=== PATIENT | male | born 1985 | race Caucasian/White ===

== ENCOUNTER 2018-03-01 16:30 | Inpatient (IN) | payer OTHER ==
[~2018-03-01] VITALS: Ht 170.2 cm; Wt 73.3 kg
[~2018-03-01 16:30] MED LIST: SEROQUEL50 M1 PO
--- NOTE | 2018-03-01 16:50 | ED PSYCHIATRIC COMPLAINT ---
History of Present Illness General Chief Complaint: Psychiatric Related Complaint Stated Complaint: +SI Source: patient Exam Limitations: no limitations Vital Signs & Intake/Output Vital Signs & Intake/Output Vital Signs Date Time Temp Pulse Resp B/P B/P Pulse O2 O2 Flow FiO2 Mean Ox Delivery Rate 03/02 1122 97.2 68 18 122/73 98 03/02 0837 97.2 85 18 137/94 97 03/02 0617 98.5 54 18 123/85 98 Room Air 03/01 2229 98.4 94 18 114/88 97 Room Air 03/01 2207 Room Air 03/01 2049 98.4 100 20 155/91 99 Room Air 03/01 1652 98 Room Air 03/01 1638 97.6 94 18 128/72 98 Room Air ED Intake and Output 03/02 0000 03/01 1200 Intake Total Output Total Balance Patient 155 lb Weight Allergies Coded Allergies: No Known Allergies (06/15/17) Triage Note: PT STATES THAT HE WAS RELEASED FROM [facility] YESTERDAY AND WAS SENT [facility] ABD THEY WOULD NOT EXCEPT HIM DUE TO HE HAS WARRANTS OUT FOR ARREST. PT STATES THAT HE IS HOMELESS AND HAS BEEN FEELING POSITIVE SI WITH NO PLAN AT THIS TIME. LAST USED Wednesday. DENIES ETOH Triage Nurses Notes Reviewed? yes Onset: Gradual Duration: week(s): Timing: recent history HPI: 32yo male with hx of substance abuse presents to ED for suicidal ideation. Patient states he was released from rehab yesterday and attempted to get into a [facility] house however was denied due to outstanding warrants for his arrest. Patient was in rehabilitation for heroin and crack cocaine use, he last used both on 02/21, one day prior to admission to rehab. Patient also used alcohol last on 02/22. He reports feeling suicidal relating to being homeless and lack of social support. He feels as though he would be "better off ". Patient states that currently he does not have a plan however states that if he were discharged he believes he would do something, he does not feel safe on his own at this time. Patient reports one previous suicide attempt where he was going to hang himself however EMS arrived prior to going through with it. No HI/AH/VH. (Ghislaine WOLF,Nupur Zavala) Reconcile Medications Ibuprofen (Advil) 200 MG CAPSULE 3 CAP PO PRN PAIN/INFLAMMATION (Reported) Methadone HCl 10 MG/ML ORAL.CONC 30 MG PO DAILY MENTAL HEALTH (Reported) Trazodone HCl 50 MG TABLET 1-2 TAB PO QPM PRN SLEEP/MENTAL HEALTH (Reported) (Gilbert SPICER,Alessio Gómez) Past History Travel History Traveled to [place] past 21 day No Medical History Any Pertinent Medical History? see below for history Neurological: NONE EENT: NONE Cardiovascular: NONE Respiratory: NONE Gastrointestinal: NONE Hepatic: NONE Renal: NONE Musculoskeletal: NONE Psychiatric: substance abuse Endocrine: NONE Blood Disorders: NONE Cancer(s): NONE NET FINISHER/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: NONE Surgical History Surgical History: non-contributory Psychosocial History Who do you live with Other (see notes) What is your primary language Vietnamese Tobacco Use: Never used ETOH Use: denies use Illicit Drug Use: denies illicit drug use Family History Hx Contributory? No (Nupur Hernandez) Review of Systems Review of Systems Constitutional: Reports: no symptoms. EENTM: Reports: no symptoms. Respiratory: Reports: no symptoms. Cardiovascular: Reports: no symptoms. GI: Reports: no symptoms. Genitourinary: Reports: no symptoms. Musculoskeletal: Reports: no symptoms. Skin: Reports: no symptoms. Neurological/Psychological: Reports: see HPI. Hematologic/Endocrine: Reports: no symptoms. Immunologic/Allergic: Reports: no symptoms. All Other Systems: Reviewed and Negative (Nupur Hernandez) Physical Exam Physical Exam General Appearance: well developed/nourished, no apparent distress, alert, awake Head: atraumatic, normal appearance Eyes: Bilateral: normal appearance. Ears, Nose, Throat: hearing grossly normal Neck: normal inspection, supple, full range of motion Respiratory: normal breath sounds, no respiratory distress, lungs clear Cardiovascular: regular rate/rhythm Extremities: normal range of motion Neurological/Psychiatric: no motor/sensory deficits, awake, alert, normal mood/ affect, calm Appearance/Memory/Insight: appropriate appearance, appropriate insight Behavoir/Eye Contact/Speech: cooperative, good eye contact Thoughts/Hallucinations: normal thought pattern, no apparent hallucination Skin: intact, normal color, warm/dry SAD PERSONS SAD PERSONS Response Value Male Sex? yes 1 Depression/Hopelessness? yes 2 Previous Attempts/Psych Care yes 1 Excessive Ethanol/Drug Use? yes 1 Single//? yes 1 Social Support? has no support 1 Stated Future Intent? yes 2 Total 9 SAD PERSONS Done? yes (Ghislaine WOLF,Nupur Zavala) Progress Differential Diagnosis: drug intoxication, drug overdose, drug withdrawal, suicidal ideation, depression, homelessness Plan of Care: Orders Procedure Date/time Status Regular Diet 03/02 D Active Regular Diet 03/02 B Complete Admit to inpatient psych 03/02 1335 Active Patient Data - inpatient psych 03/02 1323 Active Admit to inpatient psych 03/02 1323 Active Vital Signs 03/02 UNK Active Nursing Misc 03/02 UNK Active Alternative Nursing Therapy 03/02 UNK Active Activity/Ambulation 03/02 UNK Active Continuous Observation Monitor 03/01 1632 Active URINE DRUG SCREEN FOR ER ONLY 03/01 1632 Complete URINALYSIS 03/01 1632 Complete ETHANOL 03/01 1632 Complete COMPREHENSIVE METABOLIC PANEL 03/01 1632 Complete CBC WITHOUT DIFFERENTIAL 03/01 1632 Complete ED CRISIS PSYCH CONSULT 03/01 1632 Active Current Medications Sig/Wong Start time Last Medication Dose Stop Time Status Admin Trazodone HCl 50 MG QPM 03/02 2100 UNVr (Desyrel) Al Hydroxide/Mg 30 ML Q4-6 PRN PRN 03/02 1330 UNVr Hydroxide (Maalox Plus) Hydroxyzine HCl 50 MG Q6-PRN PRN 03/02 1330 UNVr (Atarax) Ibuprofen 400 MG Q6P PRN 03/02 1330 UNVr (Motrin) Methadone HCl 30 MG DAILY 03/02 0900 UNVr 03/02 (Dolophine) 1042 Trazodone HCl See Dose QPM PRN 03/02 0145 CANr (Desyrel) Insts (1) Dose Instructions: (1)Trazodone HCl (Desyrel): 1-2 TAB Laboratory Tests 03/01/18 1721: Urine Opiates Screen < 100, Methadone Screen 676 H, Barbiturate Screen < 60, Ur Phencyclidine Scrn < 6.00, Amphetamines Screen < 100, U Benzodiazepines Scrn < 85, Urine Cocaine Screen < 50, Urine Cannabis Screen < 5.00, Urine Color YEL, Urine Clarity CLEAR, Urine pH 6.5, Ur Specific [place] 1.025, Urine Protein NEG, Urine Ketones NEG, Urine Nitrite NEG, Urine Bilirubin NEG, Urine Urobilinogen 0.2, Ur Leukocyte Esterase NEG, Ur Microscopic EXAM NOT REQUIRED, Urine Hemoglobin NEG, Urine Glucose NEG 03/01/18 1705: Anion Gap 8, Estimated GFR > 60, BUN/Creatinine Ratio 21.1, Glucose 89, Calcium 9.8, Total Bilirubin 0.3, AST 33, ALT 58, Alkaline Phosphatase 50, Total Protein 7.6, Albumin 4.4, Globulin 3.2, Albumin/Globulin Ratio 1.4, CBC w Diff NO MAN DIFF REQ, RBC 5.45, MCV 84.3, MCH 28.5, MCHC 33.7, RDW 14.1, MPV 6.6 L, Gran % 64.4, Lymphocytes % 24.9, Monocytes % 7.3, Eosinophils % 2.0, Basophils % 1.4, Absolute Granulocytes 5.1, Absolute Lymphocytes 2.0, Absolute Monocytes 0.6, Absolute Eosinophils 0.2, Absolute Basophils 0.1, Serum Alcohol < 10.0 Patient's labs and urinalysis are stable. Awaiting crisis evaluation and disposition. The patient was signed out to Dr. Coreas pending crisis evaluation and disposition. Hand-Off Endorsed To: Ector Coreas DO Endorsed Time: 1853 Pending: consult (crisis) (Nupur Hernandez) Departure Departure Disposition: STILL A PATIENT Condition: Stable Clinical Impression Primary Impression: Suicidal ideation Referrals: Patient Has No Primary Care Dr (PCP/Family) Departure Forms: Customer Survey General Discharge Information (Nupur Hernandez) Departure Comments 03/01/18 Patient was signed out to me by Teresa WOLF at 7 PM. She is for disposition by crisis in the a.m. She will be signed out to Dr. Hunt at 11 PM (Ector Coreas DO) Departure Comments pt to be signed out to dr. garrett, 03/02/18, 7am, pending crises evaluation (Gilbert SPICER,Alessio Gómez) Psych Admission Note Psychiatric Admission: I have seen and evaluated CRISTOFER SIMMONS. I have also reviewed all the pertinent lab results and diagnostic results. CRISTOFER SIMMONS will be admitted to our inpatient Psychiatric unit for treatment and care. PA/MILLSTONE CLEANER Co-Sign Statement Statement: ED Attending supervision documentation- [X] I saw and evaluated the patient. I have also reviewed all the pertinent lab results and diagnostic results. I agree with the findings and the plan of care as documented in the PA's/MILLSTONE CLEANER's documentation. [X] I have reviewed the ED Record and agree with the PA's/MILLSTONE CLEANER's documentation. [] Additions or exceptions (if any) to the PAs/MILLSTONE CLEANER's note and plan are summarized below: [Patient to be admitted to inpatient psychiatry.] (Ailyn SPICER,Yair Donnelly)
[2018-03-01 17:17] LABS: ABSOLUTE BASOPHIL COUNT 0.1 /CUMM (0.0-0.2); ABSOLUTE EOSINOPHIL COUNT 0.2 /CUMM (0.0-0.7); ABSOLUTE GRANULOCYTE CT 5.1 /CUMM (1.4-6.5); ABSOLUTE MONOCYTE COUNT 0.6 /CUMM (0.10-0.60); BASOPHIL % 1.4 % (0.0-2.0); GRANULOCYTE % 64.4 % (42.2-75.2); HEMATOCRIT 45.9 % (42-52); MEAN CORPUSCULAR HGB 28.5 PG (27.0-31.0); MEAN CORPUSCULAR HGB CONC 33.7 G/DL (33.0-37.0); MEAN CORPUSCULAR VOLUME 84.3 FL (80.0-94.0); MEAN PLATELET VOLUME 6.6 FL (7.4-10.4); PLATELET COUNT 462 /CUMM (130-400); RBC DISTRIBUTION WIDTH 14.1 % (11.5-14.5); RED BLOOD CELL CT 5.45 /CUMM (4.70-6.10); WHITE BLOOD CELL COUNT 7.9 /CUMM (4.8-10.8)
--- NOTE | 2018-03-01 20:37 | ED PSYCH CRISIS CONSULTATION ---
Crisis Consult Basic Assessment Date of Consult: 03/01/18 Responsible Person/Accompanied By: alone Insurance Authorization: Insurance #1: Insurance name: BEV ARNDT Phone number: Policy number: [id number] Group number: Authorization number: ED Provider: Patient's ED Provider: Nupur Hernandez Primary Care Physician: Patient's PCP: Patient Has No Primary Care Dr PCP's Phone Number: Current Psychiatrist: None Chief Complaint: Psychiatric Related Complaint Patient's Quote: "I'm having suicidal endencies, I mean ideations" Present Illness: Pt is a 32 year old male, arriving to ER due to feeling unsafe, Pt left [facility] after a 5 day detox, he is currently only prescribed 30 mg of methadone, tox screen is positive for Methadone. 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 It is unclear of the time frame as the patient also said he was with a friend last night, I wanted to confirm the disposition plan with [facility], but they were not available this evening. Pt is hopeless in terms of housing, he also has no plans to turn himself in, which may alleviate some of this burden for him. Pt is currently unemployed and lost his apartment due to inability to pay rent as he was spending his money on drugs. Pt has been using heroin since age 20 and cocaine since age 29. Since then he has been sober about a year with the help of NA/AA meetings. Pt has been admitted to psychiatric hospital in the past for "telling my girlfriend at the time I was going to tie an extension cord around my neck, she called 911 and the ambulance came" this was in 2013. Pt is not currently in any psychiatric treatment. Pt is expressing "suicidal tendencies, I mean ideations", he offers he has "never been in this situation before, and I don't want to do anything stupid". Pt is a , he was discharged general under honorable, and reposrts he doesn't get a lot of the benefits as if he were honorably discharged. Spoke to his Father, who states the family is no longer a resource for him, due to "burning many bridges, and causing harm to others" his Father states "i don't have the answer, I don't understand the legal system, I have empathy ot sympathy for my son". He offers "I'm sure he is a lot of physical and emotional pain". Patient's Address: [address] [place] [address] Other Phone Number: Who Do You Live With? Other (see notes) Family/Informants Interviewed: Spoke to his Father, is not a resource, but would like an update Allergies - Coded Allergies: No Known Allergies (06/15/17) Laboratory Results: Laboratory Tests 03/01/18 1721: Urine Opiates Screen < 100, Methadone Screen 676 H, Barbiturate Screen < 60, Ur Phencyclidine Scrn < 6.00, Amphetamines Screen < 100, U Benzodiazepines Scrn < 85, Urine Cocaine Screen < 50, Urine Cannabis Screen < 5.00, Urine Color YEL, Urine Clarity CLEAR, Urine pH 6.5, Ur Specific [place] 1.025, Urine Protein NEG, Urine Ketones NEG, Urine Nitrite NEG, Urine Bilirubin NEG, Urine Urobilinogen 0.2, Ur Leukocyte Esterase NEG, Ur Microscopic EXAM NOT REQUIRED, Urine Hemoglobin NEG, Urine Glucose NEG 03/01/18 1705: Anion Gap 8, Estimated GFR > 60, BUN/Creatinine Ratio 21.1, Glucose 89, Calcium 9.8, Total Bilirubin 0.3, AST 33, ALT 58, Alkaline Phosphatase 50, Total Protein 7.6, Albumin 4.4, Globulin 3.2, Albumin/Globulin Ratio 1.4, CBC w Diff NO MAN DIFF REQ, RBC 5.45, MCV 84.3, MCH 28.5, MCHC 33.7, RDW 14.1, MPV 6.6 L, Gran % 64.4, Lymphocytes % 24.9, Monocytes % 7.3, Eosinophils % 2.0, Basophils % 1.4, Absolute Granulocytes 5.1, Absolute Lymphocytes 2.0, Absolute Monocytes 0.6, Absolute Eosinophils 0.2, Absolute Basophils 0.1, Serum Alcohol < 10.0 (Steph LIAO,Edita) Current Medications - Scheduled Medications Methadone HCl 10 MG/ML ORAL.CONC 30 MG PO DAILY MENTAL HEALTH (Reported) Entered as Reported by Tawnya Knutson on 03/01/182115 Scheduled PRN Medications Ibuprofen (Advil) 200 MG CAPSULE 3 CAP PO PRN PAIN/INFLAMMATION (Reported) Entered as Reported by Tawnya Knutson on 03/01/182116 Trazodone HCl 50 MG TABLET 1-2 TAB PO QPM PRN SLEEP/MENTAL HEALTH (Reported) Entered as Reported by Tawnya Knutson on 03/01/182116 (Ge Riley LPC) Addendum Note Addendum Pt reassessed this morning in response to hold over follow up. Pt continues to report suicidal thoughts. When asked about a plan he was vague stating he would likely overdose should he be released from the ED. Pt looking to be placed inpatient. Pt claimed he's been trying to get into a jail drug rehab, but he's facing waiting lists and denial's due to his 2 warrants. Pt claimed he's on a wait list for [facility]. He's also contacted [facility] in [place] and was told he'd have a telephone screening but not today. There's also a wait list there as well. Clinician was able to reach [facility] and spoke with Hilary. Hilary confirmed that pt started methadone on 02/28/18 and was given a 30 mg dose with a plan to titrate up. Pt completed a 5 day detox there and was to go to [facility], but was denied due to his two warrants. Pt refuses to turn himself in at this time to face the charges. Pt claimed his civil attorney suggests that he wait until he's in a drug program before turning himself in believing there will be more leniency. Nonetheless, pt continues to express distress and helplessness. Mood is depressed with congruent affect. Poor eye contact throughout the reassessment. Thoughts were clear and organized with no psychotic processes evident. Speech was wnl. He denied any homicidal ideations. Activating events include homelessness, recent detox and relapse concern, legal problems and limited supports. Case was reviewed with the [facility]er psychiatrist. Given pt's mental status, suicidal ideations and threats, and risk factors he may be at risk for self harm. Pt's current needs meet an inpatient level of care which is recommended at this time. Pt signed a voluntary admission form for [facility] inpatient unit. 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 Psychiatric Treatment History Psych Treatment Psychiatric Treatment Yes Inpatient Treatment Yes Outpatient Treatment No Location of Treatment [facility] Reason for Treatment si comments Dates of Treatment 2013 Response to Treatment unknown Diagnosis by History: Unknown Substance Use/Abuse History Drug Use/Abuse 1 Substances Used/Abused Yes Substance Used/Abused Cocaine First Use 29 Last Used 5 days ago How much used/taken $100 plus a day How often daily For how long 3 years Route of use nasal Drug Use/Abuse 2 Substances Used/Abused Yes Substance Used/Abused Heroin First Use 20 Last Used 5 days ago How much used/taken 10-20 bags daily How often daily For how long 12 years Route of use IV Substance Abuse Treatment Substance Abuse Treatment Past Substance Abuse TX Yes Inpatient Treatment Yes Outpatient Treatment Yes Location of Treatment [facility]/ a few other in past Reason for Treatment heroin and cocaine abuse Dates of Treatment current with [facility]. Response to Treatment unknown (Edita Choi LCSW) Current Mental Status Mental Status Orientation: Person, Place, Situation Affect: Flat, Hopeless, Lonely Speech: WNL Neuro-vegetative: Concentration Poor, Sleep Disturbance Appearance Appearance- Dress/Hygiene: appropriate Behaviors Thought Process: WNL Thought Content: WNL Memory: WNL Insight: Fair SI/HI Risk Assessment Past Suicidal Ideation/Attempts Yes Current Suicidal Ideation/Att Yes Past Homicidal Ideation/Att: No Current Homicidal Ideation/Attempts No Degree of Intent: Thoughts/No Intent Danger To: Self Risk Factors: substance abuse, male, limited support Lethality Ratin PTSD Checklist PTSD Done? patient declined ED Management Sitter: Yes Restraints: No (Edita Choi LCSW) DSM5/PS Stressors/Medical Prob Diagnosis' (DSM 5, Stressors, Medical): Opiate use d/o F 11.20 Cocaine use d/o F14.10 in early remission unspecified depressive d/o F32.9 housing Current GAF: 30 (Steph LIAO,Edita) Departure Disposition Psych Medical Clearance Date: 03/01/18 Medically Cleared at: 1829 Time Started: 1829 Time Ended: 1929 Psychiatrist Consulted: Sandra SPICER,Sylvia Date Disposition Established: 03/01/18 Plan for Disposition - Modality: Re eval Rationale for Disposition: We need to verify discharge plan with [facility] and [facility] , it is unclear what happened. Reviewed with Dr. Flores, pt is under stress related to warrants and lack of housing and presents with thoughts of si and not sure "where to go what to do". Re eval in the morning. Referrals Patient Has No Primary Care Dr (PCP/Family) (Edita Choi LCSW)
[2018-03-01] MEDS ORDERED: METHADONE10 MG/1 M2 PO (21:16)
[2018-03-01] MEDS ORDERED: ADVIL200 M1 PO (21:17)
[2018-03-01] MEDS ORDERED: TRAZODONE HCL50 M1 PO (21:17)
--- NOTE | 2018-03-02 15:35 | IP CRISIS DIAG ASSESS PSYCH ---
See Addendum Diagnostic Assessment Basic Assessment Insurance Authorization: Insurance #1: Insurance name: [employer] Phone number: Policy number: [id number] Group number: Authorization number: Primary Care Physician: Patient's PCP: Patient Has No Primary Care Dr PCP's Phone Number: Patient's Quote: "I'm having suicidal endencies, I meanideations" Present Illness: Pt is a 32 year old male, arriving to ER due to feeling unsafe, Pt left [facility] after a 5 day detox, he is currently only prescribed 30 mg of methadone, tox screen is positive for Methadone. Pt states he was accepted to [facility] for custodial drug treatment, and as they were coming to pick him up, he was told he has 2 outstanding warrants in [facility], 3 of which are felonies including risk of injury to a minor, and credit card fraud, therefore, he states they told him he could not be accepted to their program. It is unclear of the time frame as the patient also said he was with a friend last night, I wanted to confirm the disposition plan with [facility], but they were not available this evening. Pt is hopeless in terms of housing, he also has no plans to turn himself in, which may alleviate some of this burden for him. Pt is currently unemployed and lost his apartment due to inability to pay rent as he was spending his money on drugs. Pt has been using heroin since age 20 and cocaine since age 29. Since then he has been sober about a year with the help of NA/AA meetings. Pt has been admitted to psychiatric hospital in the past for "telling my girlfriend at the time I was going to tie an extension cord around my neck, she called 911 and the ambulance came" this was in 2013. Pt is not currently in any psychiatric treatment. Pt is expressing "suicidal tendencies, I mean ideations", he offers he has "never been in this situation before, and I don't want to do anything stupid". Pt is a , he was discharged general under honorable, and reposrts he doesn't get a lot of the benefits as if he were honorably discharged. Spoke to his Father, who states the family is no longer a resource for him, due to "burning many bridges, and causing harm to others" his Father states "i don't have the answer, I don't understand the legal system, I have empathy ot sympathy for my son". He offers "I'm sure he is a lot of physical and emotional pain". Pt reassessed this morning in response to hold over follow up. Pt continues to report suicidal thoughts. When asked about a plan he was vague stating he would likely overdose should he be released from the ED. Pt looking to be placed inpatient. 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 Pt claimed he's on a wait list for [facility] and [facility]. He's also contacted [facility] in [place] and was told he'd have a telephone screening but not today. There's also a wait list there as well. Clinician was able to reach [facility] and spoke with Hilary. Hilary confirmed that pt started methadone on 02/28/18 and was given a 30 mg dose with a plan to titrate up. Pt completed a 5 day detox there and was to go to [facility], but was denied due to his two warrants. Pt refuses to turn himself in at this time to face the charges. Pt claimed his prosecuting attorney suggests that he wait until he's in a drug program before turning himself in believing there will be more leniency. Nonetheless, pt continues to express distress and helplessness. Mood is depressed with congruent affect. Poor eye contact throughout the reassessment. Thoughts were clear and organized with no psychotic processes evident. Speech was wnl. He denied any homicidal ideations. Activating events include homelessness, recent detox and relapse concern, legal problems and limited supports. Case was reviewed with the ironworker psychiatrist. Given pt's mental status, suicidal ideations and threats, and risk factors he may be at risk for self harm. Pt's current needs meet an inpatient level of care which is recomme Patient's Address: [address] [place] [address],[place] [address] Other Phone Number: Who Do You Live With? Other (see notes) Feel Safe in Your Relationship Yes Marital Status: single Do You Have Children? No Primary Language? Italian Language(s) Spoken At Home: Italian Family/Informants Interviewed: Spoke to his Father, is not a resource, but would like an update Allergies - Coded Allergies: No Known Allergies (06/15/17) Current Medications - Scheduled Medications Methadone HCl 10 MG/ML ORAL.CONC 30 MG PO DAILY MENTAL HEALTH (Reported) Entered as Reported by Tawnya Knutson on 03/01/182115 Scheduled PRN Medications Ibuprofen (Advil) 200 MG CAPSULE 3 CAP PO PRN PAIN/INFLAMMATION (Reported) Entered as Reported by Tawnya Knutson on 03/01/182116 Trazodone HCl 50 MG TABLET 1-2 TAB PO QPM PRN SLEEP/MENTAL HEALTH (Reported) Entered as Reported by Tawnya Knutson on 03/01/182116 Lab Results: Laboratory Tests 03/01/18 1721: Urine Opiates Screen < 100, Methadone Screen 676 H, Barbiturate Screen < 60, Ur Phencyclidine Scrn < 6.00, Amphetamines Screen < 100, U Benzodiazepines Scrn < 85, Urine Cocaine Screen < 50, Urine Cannabis Screen < 5.00, Urine Color YEL, Urine Clarity CLEAR, Urine pH 6.5, Ur Specific [place] 1.025, Urine Protein NEG, Urine Ketones NEG, Urine Nitrite NEG, Urine Bilirubin NEG, Urine Urobilinogen 0.2, Ur Leukocyte Esterase NEG, Ur Microscopic EXAM NOT REQUIRED, Urine Hemoglobin NEG, Urine Glucose NEG 03/01/18 1705: Anion Gap 8, Estimated GFR > 60, BUN/Creatinine Ratio 21.1, Glucose 89, Calcium 9.8, Total Bilirubin 0.3, AST 33, ALT 58, Alkaline Phosphatase 50, Total Protein 7.6, Albumin 4.4, Globulin 3.2, Albumin/Globulin Ratio 1.4, CBC w Diff NO MAN DIFF REQ, RBC 5.45, MCV 84.3, MCH 28.5, MCHC 33.7, RDW 14.1, MPV 6.6 L, Gran % 64.4, Lymphocytes % 24.9, Monocytes % 7.3, Eosinophils % 2.0, Basophils % 1.4, Absolute Granulocytes 5.1, Absolute Lymphocytes 2.0, Absolute Monocytes 0.6, Absolute Eosinophils 0.2, Absolute Basophils 0.1, Serum Alcohol < 10.0 Toxicology Screen Completed? Yes Results: positive (methadone) Past History Past Medical History Medical History: None/Denies Abuse/Trauma History Trauma History/Current Trauma: Denies Legal History Current Legal Status: JERAMIE and credit card fraud Have you ever been arrested? 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 Psychiatric Treatment History Psych Treatment Psychiatric Treatment Yes Inpatient Treatment Yes Outpatient Treatment No Location of Treatment [facility] [place] Reason for Treatment si comments Dates of Treatment 2013 Response to Treatment unknown Diagnosis by History: Unknown Risk Factors: substance abuse, male, limited support Substance Use/Abuse History Drug Use/Abuse minimum 12mo Hx Substances Used/Abused Yes Substance Used/Abused Heroin First Use 20 Last Used 5 days ago How much used/taken 10-20 bags daily How often daily For how long 12 years Route of use IV Substance Abuse Treatment Substance Abuse Treatment Past Substance Abuse TX Yes Inpatient Treatment Yes Outpatient Treatment Yes Location of Treatment [facility]/ a few other inpast Reason for Treatment heroin and cocaine abuse Dates of Treatment current with [facility]. Response to Treatment unknown Education History Highest Level of Education: high school/GED Current Mental Status Mental Status Orientation: Person, Place, Situation Affect: Depressed, Flat, Hopeless, Lonely Speech: WNL Neuro-vegetative: Concentration Poor, Sleep Disturbance Appearance Appearance- Dress/Hygiene: appropriate Behaviors Thought Process: WNL Thought Content: WNL Memory: WNL Insight: Poor SI/HI Risk Assessment - Minimum 6mo History- Past Suicidal Ideation/Attempts Yes Current Suicidal Ideation/Att Yes Past Homicidal Ideation/Att: No Current Homicidal Ideation/Attempts No Degree of Intent: Thoughts/No Intent Danger To: Self Risk Factors: substance abuse, male, limited support Lethality Ratin Needs/Init TX Plan/Goals: Mood stabilization and eliminate suicidal ideations. AUDIT-C Questionnaire: AUDIT-C Questionnaire: Response Value ETOH use in the past year Monthly or less 1 # drinks typical/day Doesn't Drink 0 6 or > drinks per occasion Never 0 Total 1 DSM5/PS Stressors/Medical Prob Diagnosis' (DSM 5, Stressors, Medical): F32.9 Unspecified Depressive Disorder Opiate use d/o F 11.20 Cocaine use d/o F14.10 in early remission unspecified depressive d/o F32.9 housing Current GAF: 25
[2018-03-02 15:57] VITALS: BP 132/80
[2018-03-02 16:07] VITALS: BP 132/80
[2018-03-02 19:45] VITALS: BP 125/76
--- NOTE | 2018-03-02 21:37 | RADIOLOGY REPORT ---
EXAMINATION: XR PORTABLE CHEST CLINICAL INFORMATION: Cough. Smoker. Reports trouble breathing. COMPARISON: None. TECHNIQUE: AP portable upright view of the chest FINDINGS: Lungs are clear. No consolidation, pneumothorax, or pleural effusion. Cardiac and mediastinal contours are normal. Pulmonary vasculature is unremarkable. Osseous structures are unremarkable. IMPRESSION: No acute cardiopulmonary findings
[2018-03-03 07:25] VITALS: BP 125/78
--- NOTE | 2018-03-03 08:25 | CPS PROVIDER INIT ASMT PSYCH ---
Psychiatric Admission Survey Director's Note Reviewed: Yes Patient Seen and Examined: Yes Identifying Information: Pt is a 32 year old male, arriving to ER due to feeling unsafe, Chief Complaint: "I'm having suicidal endencies, I mean ideations" Reaction to Hospitalization: Was admitted voluntarily History of Present Illness Onset of Illness: since childhood Circumstances Leading to Admission: As per Ge Riley, DIP TUBE ASSEMBLER MACHINE's note on 03/02/18: "Pt. is a 32-year-old male, arriving to ER due to feeling unsafe, Pt left [facility] after a 5 day detox, he is currently only prescribed 30 mg of methadone, tox screen is positive for Methadone. 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 Pt is hopeless in terms of housing, he also has no plans to turn himself in, which may alleviate some of this burden for him. Pt is currently unemployed and lost his apartment due to inability to pay rent as he was spending his money on drugs. Pt has been using heroin since age 20 and cocaine since age 29. Since then he has been sober about a year with the help of NA/AA meetings. Pt has been admitted to psychiatric hospital in the past for "telling my girlfriend at the time I was going to tie an extension cord around my neck, she called 911 and the ambulance came" this was in 2013. Pt is not currently in any psychiatric treatment." Pt is expressing "suicidal tendencies, I mean ideations", he offers he has "never been in this situation before, and I don't want to do anything stupid". Pt is a , he was discharged general under honorable, and reposrts he doesn't get a lot of the benefits as if he were honorably discharged. Spoke to his Father, who states the family is no longer a resource for him, due to "burning many bridges, and causing harm to others" his Father states "i don't have the answer, I don't understand the legal system, I have empathy ot sympathy for my son". He offers "I'm sure he is a lot of physical and emotional pain". Pt reassessed this morning in response to hold over follow up. Pt continues to report suicidal thoughts. When asked about a plan he was vague stating he would likely overdose should he be released from the ED. Pt looking to be placed inpatient. Pt claimed he's been trying to get into a termite control service representative drug rehab, but he's facing waiting lists and denial's due to his 2 warrants. Pt claimed he's on a wait list for [facility] and [facility]. He's also contacted [facility] [place] and was told he'd have a telephone screening but not today. There's also a wait list there as well. Clinician was able to reach [facility] and spoke with Hilary. Hilary confirmed that pt started methadone on 02/28/18 and was given a 30 mg dose with a plan to titrate up. Pt completed a 5 day detox there and was to go to [facility], but was denied due to his two warrants. Pt refuses to turn himself in at this time to face the charges. Pt claimed his civil attorney suggests that he wait until he's in a drug program before turning himself in believing there will be more leniency. Nonetheless, pt continues to express distress and helplessness. Mood is depressed with congruent affect. Poor eye contact throughout the reassessment. Thoughts were clear and organized with no psychotic processes evident. Speech was wnl. He denied any homicidal ideations. Activating events include homelessness, recent detox and relapse concern, legal problems and limited supports. Case was reviewed with the director on air psychiatrist. Given pt's mental status, suicidal ideations and threats, and risk factors he may be at risk for self harm. Pt's current needs meet an inpatient level of care which is recomme Problem(s) Justifying Need for Admission: thoughts of suicide Past Psychiatric History Past Diagnosis(es)- if any: OCD Opioid Use Disorder Past Precipitating Factors- if any: drug use, unstable housing - Include inpatient and outpatient treatment Treatment History: He was just recently detoxified at [facility], he was declined by [facility] rehab because of an outstanding warrant for arrest History of Suicide Attempts or Gestures denied history of suicide attempts Substance Abuse History: Opioid Use disorder since age 20 Allergies: Coded Allergies: No Known Allergies (06/15/17) Home Med List: Methadone 30 mg daily - Include any medical condition(s) that may - impact the patient's recovery/remission Past History Medical History Neurological: NONE EENT: NONE Cardiovascular: NONE Respiratory: NONE Gastrointestinal: NONE Hepatic: NONE Renal: NONE Musculoskeletal: NONE Psychiatric: substance abuse Endocrine: NONE Blood Disorders: NONE Cancer(s): NONE 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/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: NONE History of MRSA: No History of VRE: No History of CDIFF: No Isolation History: Standard Surgical History Surgical History: non-contributory Psychiatric Family/Social Hx Family History Psychiatric Illness: Mother (??), he said when he was 7 she was diagnosed with Dementia (?) Substance Use: denied Suicides: denied Social History Living Situation: currently homeless Significant Relationships (family/friends): father Education: Unexplored, please refer to the biopsychosocial assessment Vocation/Occupation: Currently unemployed, he was in the for 6-1/2 years he said Legal: There are 2 outstanding warrants for his arrest. Healthly Behaviors Screening Tobacco Screening Tobacco Use from ED Docu: Never used - If tobacco counseling indicated - the following topics are required. - #1 Recognizing dangerous situations. - #2 Coping Skills. - #3 Basic information about quitting. Status of Tobacco Cessation Counseling: Not Applicable Cessation Med Status Not Applicable Alcohol Screening - ETOH screen POS if BAL >=80 or Audit-C>= M4/F3 Audit-C Score from Diag Assess: 1 Blood Alcohol Level: Laboratory Tests 03/01 1705 Toxicology Serum Alcohol (<10 MG/DL) < 10.0 Alcohol Use Screening Results: Neg per Audit C &/or BAL - If ETOH counseling indicated - the following topics are required. - #1 Express concern about the patient's - drinking at unhealthy levels, include informing - of national norms for moderate drinking: - men <= 14 drinks/week, max 4 drinks/occasion - women <= 7 drinks/week, max 3 drinks/occasion - #2 Providing feedback, including linking alcohol to - negative physical effects (liver injury, hypertension) - negative emotional effects (relationship problems and - depression) - negative occupational consequences (reduced work - performance) - #3 Advising the patient to abstain from alcohol or - to drink below national norms for moderate drinking - (as listed above). Status of ETOH Use Counseling: N/A B/C NO ETOH Use Metabolic Screening - Screen if on a Neuroleptic Medication - Metabolic screening should include: - Blood Pressure, BMI, Glucose or Hgb A1c, & a - Lipid profile from within the past 365 days. Metabolic Screening Not Applicable, patient not on a neuroleptic. Exam and Plan Mental Status Examination Ambulation Status: Steady gait Appearance: Unremarkable appearance Attitude towards examiner: Cooperative Psychomotor activity: Increased psychomotor activity and fidgetiness Behavior: No abnormal or bizarre behaviors Quality of speech: Talkative with tangents and excessive details, some pressure Affect: Constricted Mood: He says his mood has been depressed Suicidal Ideation: He reported thoughts of suicide Homicidal Ideation: He denied thinking of violence or homicide Hallucinations: He denied hallucinations Paranoid/Delusional Material: He denied feeling paranoid, there were no delusions during the interview Difficulties with thought organization: He did not have a thought disorder Insight: Partial insight Judgment: Poor judgment by history Orientation: Alert and oriented to time, place, and person. Cognition: He did not seem to have difficulty with information processing. Memory Function: There was no evidence of short-term memory impairment. Estimate of intellectual functioning: Average intelligence Assets/Strengths Patient Identified Assets/Strengths: Patient is resourceful, has a supportive father Impression/Plan Impression and Plan: 32-year-old single white male who was admitted because of suicidal thinking in the context of homelessness. Patient was recently detoxified from opiates and was placed on methadone maintenance by a [facility]. However he could not get into rehab program because he has outstanding warrants for his arrest. - Include all active medical diagnosis that require tx DSM 5 Diagnosis(es): Unspecified depressive disorder Obsessive-compulsive spectrum disorder Opioid use disorder, on maintenance therapy - Initial Tx Plan for Active Psych & Medical Conditions Treatment Plan: Inpatient psychiatric care with safety checks every 15 minutes and Start Zoloft 50 mg daily Add gabapentin 600 mg every 6 hours as needed for anxiety or agitation or insomnia Increase methadone to 40 mg daily - Factors that would help patient function - in a less restrictive setting. Factors: Patient will be discharge after 2 consecutive days without thoughts of suicide.
--- NOTE | 2018-03-03 10:35 | SOCIAL WORKER PROG NOTE PSYCH ---
Social Work Progress Note Progress Note Pt got up to attend group, he appears resourceful states he has a screening to do with [facility] today, and believes he can return to [facility], [facility] will follow up after lunch to find out any updates in regards to these possible rehab options. We will continue to explore this as well.
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
--- NOTE | 2018-03-03 15:53 | SOCIAL WORKER PROG NOTE PSYCH ---
Ricky Crawley 03/03/18 1551: Social Work Progress Note Progress Note I Ricky Crawley (BAND EDGER Tissue Coordinator) had Larry sign a release to for [facility]. I also completed a social history with Larry
[2018-03-03 19:48] VITALS: BP 147/71
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
[2018-03-04 07:51] VITALS: BP 145/87
--- NOTE | 2018-03-04 11:22 | History & Physical ---
General Information and HPI MD Statement: I have seen and personally examined CRISTOFER SIMMONS and documented this H&P. The patient is a 32 year old M who presented with a patient stated chief complaint of suicidal ideations. Source of Information: patient Exam Limitations: no limitations History of Present Illness: 32-year-old white male just released yesterday from rehab, [facility] and sent over to have weight rehab but was not accepted due to his drug history. Patient is homeless and feels suicidal. Has had history of substance abuse (heroin and crack cocaine use) also had alcohol last on February 22. He suicidal due to being homeless and lack of social support. He feels he would be "better of " Allergies/Medications Allergies: Coded Allergies: No Known Allergies (06/15/17) Home Med list Ibuprofen (Advil) 200 MG CAPSULE 3 CAP PO PRN PAIN/INFLAMMATION (Reported) Methadone HCl 10 MG/ML ORAL.CONC 30 MG PO DAILY MENTAL HEALTH (Reported) Trazodone HCl 50 MG TABLET 1-2 TAB PO QPM PRN SLEEP/MENTAL HEALTH (Reported) Compliance With Home Meds: UNKNOWN Past History Travel History Traveled to [place] past 21 day No Medical History Neurological: NONE EENT: NONE Cardiovascular: NONE Respiratory: NONE Gastrointestinal: NONE Hepatic: NONE Renal: NONE Musculoskeletal: NONE Psychiatric: substance abuse Endocrine: NONE Blood Disorders: NONE Cancer(s): NONE 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 Exam & Diagnostic Data Last 24 Hrs of Vital Signs/I&O Vital Signs Date Time Temp Pulse Resp B/P B/P Pulse O2 O2 Flow FiO2 Mean Ox Delivery Rate 03/04 0751 99.6 95 145/87 03/03 194 97.7 80 147/71 Physical Exam General Appearance Alert, Oriented X3, Cooperative, No Acute Distress Skin No Rashes HEENT PERRLA, EOMI, Mucous Membr. moist/pink Neck Supple, No JVD, No thryomegaly Lymphatic Axillary nl, Cervical nl Cardiovascular Regular Rate, No Murmurs Lungs Clear to Auscultation Abdomen Soft, No Tenderness, No Hepatospenomegaly Neurological Exam Findings: Normal Gait, Normal Speech, Strength at 5/5 X4 Ext, Normal Tone, Sensation Intact, Cranial Nerves 3-12 NL, Reflexes 2+ Cranial Nerves II through XII: Intact. Extremities No Cyanosis, No Edema, Normal Pulses Vascular Normal Pulses, Pulses Symmetrical Last 24 Hrs of Labs/David: Laboratory Tests 03/01/18 1721: Urine Opiates Screen < 100, Methadone Screen 676 H, Barbiturate Screen < 60, Ur Phencyclidine Scrn < 6.00, Amphetamines Screen < 100, U Benzodiazepines Scrn < 85, Urine Cocaine Screen < 50, Urine Cannabis Screen < 5.00, Urine Color YEL, Urine Clarity CLEAR, Urine pH 6.5, Ur Specific [place] 1.025, Urine Protein NEG, Urine Ketones NEG, Urine Nitrite NEG, Urine Bilirubin NEG, Urine Urobilinogen 0.2, Ur Leukocyte Esterase NEG, Ur Microscopic EXAM NOT REQUIRED, Urine Hemoglobin NEG, Urine Glucose NEG 03/01/18 1705: Anion Gap 8, Estimated GFR > 60, BUN/Creatinine Ratio 21.1, Glucose 89, Calcium 9.8, Total Bilirubin 0.3, AST 33, ALT 58, Alkaline Phosphatase 50, Total Protein 7.6, Albumin 4.4, Globulin 3.2, Albumin/Globulin Ratio 1.4, CBC w Diff NO MAN DIFF REQ, RBC 5.45, MCV 84.3, MCH 28.5, MCHC 33.7, RDW 14.1, MPV 6.6 L, Gran % 64.4, Lymphocytes % 24.9, Monocytes % 7.3, Eosinophils % 2.0, Basophils % 1.4, Absolute Granulocytes 5.1, Absolute Lymphocytes 2.0, Absolute Monocytes 0.6, Absolute Eosinophils 0.2, Absolute Basophils 0.1, Serum Alcohol < 10.0 Assessment/Plan As Ranked By This Provider Problem List: 1. Suicidal ideation 2. Depression Miscellaneous Miscellaneous Documentation Attending Case Discussed With: Becka SPICER,Salo Primary Care Physician: Patient Has No Primary Care Dr Patient sees these Specialists psych. Level of Patient Care: [facility] Consults Needed: Consulting Specialty: Psychiatry Consulting Physician: Dr Jovel Reason for Consult: SI depression substance abuse Attending MD Review Statement Attending Statement Attending MD Statement: examined this patient
--- NOTE | 2018-03-04 13:01 | CP SOUTH PROGRESS NOTE PSYCH ---
Psych (Inpt) Progress Note Progress Note Mental Status Examination Steady gait, Unremarkable appearance Cooperative, Increased psychomotor activity and fidgetiness No abnormal or bizarre behaviors, talkative with tangents and excessive details, some pressure Constricted affect, he says his mood has been depressed but is "better" today He denied thoughts of suicide, denied thinking of violence or homicide, denied hallucinations, denied feeling paranoid, there were no delusions during the interview. He did not have a thought disorder, partial insight, poor judgment by history. Alert and oriented to time, place, and person. He did not seem to have difficulty with information processing. There was no evidence of short-term memory impairment. Assessment: 32-year-old single white male who was admitted because of suicidal thinking in the context of homelessness. Patient was recently detoxified from opiates and was placed on methadone maintenance by a [facility]. However he could not get into rehab program because he has outstanding warrants for his arrest. Diagnosis(es): Unspecified depressive disorder Obsessive-compulsive spectrum disorder Opioid use disorder, on maintenance therapy Treatment Plan: Continue Zoloft 50 mg daily Change gabapentin to 600 mg four times daily Increase methadone to 50 mg daily - Initial Tx Plan for Active Psych & Medical Conditions Treatment Plan: Inpatient psychiatric care with safety checks every 15 minutes and Start Zoloft 50 mg daily Add gabapentin 600 mg every 6 hours as needed for anxiety or agitation or insomnia Increase methadone to 40 mg daily Assets/Strengths Patient Identified Assets/Strengths: Patient is resourceful, has a supportive father Impression/Plan Impression and Plan: 32-year-old single white male who was admitted because of suicidal thinking in the context of homelessness. Patient was recently detoxified from opiates and was placed on methadone maintenance by a [facility]. However he could not get into rehab program because he has outstanding warrants for his arrest. 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
--- NOTE | 2018-03-04 16:01 | SOCIAL WORKER PROG NOTE PSYCH ---
Ricky Crawley 03/04/18 1552: Social Work Progress Note Progress Note I Ricky Crawley (VISITOR SERVICES INFORMATION ASSISTANT international sales representative ) met with Larry this afternoon in the back group room. The patient was attentive, cooperative and well groomed. He expressed having horrible broken sleep last night despite taking his sleeping medications. The lack of sleep seemed to throw off the start of his day and the patient reports he forgot he was here on the unit. Larry reports being in a pretty good mood this morning but wishes he can go outside and get some sun. He tries to stay organized and keeps a journal of all his contacts for programs and friends.Larry has been actively calling and working on screenings for programs such as [facility], and [facility]. Patient expressed frustrations with trying to do the screening for [facility] because the person in charge of the screenings is not there or is in meetings.
[2018-03-04 20:03] VITALS: BP 145/82
[2018-03-05 07:37] VITALS: BP 128/83
--- NOTE | 2018-03-05 09:01 | CP SOUTH PROGRESS NOTE PSYCH ---
Psych (Inpt) Progress Note Progress Note Vital Signs Date Time Temp Pulse B/P B/P 03/05 0737 100.1 100 128/83 03/04 2003 99.2 95 145/82 Mental Status Examination & Staff's Observations: Larry had a low grade fever this morning, he has what seems to be a common cold (sore throat, congestion, cough, and low grade fever) Nursing reported that he been irritable and rude, normal psychomotor activity/less fidgetiness today, talkative with tangents and excessive details, pressured, he says his mood is "better" He denied thoughts of suicide, denied thinking of violence or homicide, denied hallucinations, denied feeling paranoid, there were no delusions during the interview. He did not have a thought disorder, partial insight, Alert and oriented to time, place, and person. He did not seem to have difficulty with information processing. There was no evidence of short-term memory impairment. Assessment Update: 32-year-old single white male who was admitted because of suicidal thinking in the context of homelessness. Patient was recently detoxified from opiates and was placed on methadone maintenance by [facility]. However he could not get into rehab program because he has outstanding warrants for his arrest. 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
[2018-03-05 20:08] VITALS: BP 123/65
[2018-03-06 07:13] VITALS: BP 145/81
--- NOTE | 2018-03-06 08:33 | CP SOUTH PROGRESS NOTE PSYCH ---
Psych (Inpt) Progress Note Progress Note Vital Signs Vital Signs Date Time Temp Pulse B/P B/P Pulse O2 FiO2 03/06 713 98.0 94 145/81 03/05 2008 98.7 98 123/65 Mental Status Examination & Staff's Observations: Larry was not irritable or rude to staff. He still complaining about productive cough but he no longer has a fever. He had another episode of enuresis last night. He showed normal psychomotor activity/less fidgetiness today, he continues to be talkative with tangents and excessive details, mildly pressured, he says his mood is "better" He denied thoughts of suicide, denied thinking of violence or homicide, denied hallucinations, denied feeling paranoid, there were no delusions during the interview. He did not have a thought disorder, partial insight. He was alert and oriented to time, place, and person. He did not seem to have difficulty with information processing. There was no evidence of short-term memory impairment. Assessment Update: 32-year-old single white male who was admitted because of suicidal thinking in the context of homelessness. Patient was recently detoxified from opiates and was placed on methadone maintenance by [facility]. However he could not get into rehab program because he has outstanding warrants for his arrest. 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
[2018-03-06 19:38] VITALS: BP 125/75
[2018-03-07 07:50] VITALS: BP 137/82
--- NOTE | 2018-03-07 14:52 | SOCIAL WORKER PROG NOTE PSYCH ---
Social Work Progress Note Progress Note Concurrent review completed on the [facility] online portal and is listed as "Pended. " Pended Authorization # [id number] Client Authorization # [id number] Type of Request CONCURRENT
--- NOTE | 2018-03-07 15:31 | CP SOUTH PROGRESS NOTE PSYCH ---
Psych (Inpt) Progress Note Progress Note Include the following elements, when applicable: Involvement in the active treatment of the patient with behavioral observations of the patient and the patient's response to the treatment. Review of the ongoing treatment process in the context of the treatment plan. Indication of how multi-disciplinary staff members are carrying out the treatment plan. Plans for future interventions and recommendations for revision of the treatment plan. Liaison with other physicians/providers. Progress Note: "No one is listening to me" The patient reports that he was awake for much of the night though. Report indicates that she slept well after trazodone. The patient struggles to identify his problems but when pushed describes them as "irritability, anger and being "unfocused"". He reports that he is "in shock" around that he may not be accepted at rehab program secondary to his outstanding warrants. The patient reports that he is suicidal and that if we discharge him "I will kill myself and you will all be arrested". He reports feeling safe on the unit. He reports difficulty controlling his emotions and his actions. The patient's methadone has been increased here from 30-50 mg. Per discussion at team meeting this morning, increasing methadone is outside of the scope at this facility. The patient was advised that we will have to reduce the dose. He was extremely upset about this. Mental status examination: The patient is a 32-year-old male casually and appropriately dressed. He was alert and oriented 3 and his gait was steady. Throughout the interview he was restless, agitated, pulling a sweater over his eyes and refusing to pull it down. Eye contact was poor. Speech was increased in rate, intermittently loud in volume, normal in rhythm and tone. He described his mood is irritable and angry and his affect was mood congruent. He was not suicidal or homicidal. Thought process was increased in tempo, difficult to interrupt or redirect. Thought form was normal. Thought content was emotionally driven with no delusions or obsessions. Attention and concentration were poor. There was no perceptual abnormality. Impulse control was poor. The patient terminated the interview by storming out of my office. Recent and remote memory were intact. Intelligence level is likely average, fund of knowledge average, use of language appropriate. Insight is limited and judgment is poor but not impaired. Assessment: The patient presents with increased level of activity, reduced sleep , irritability, anger, inability to sit still and emotional dysregulation. He has been reactive and belligerent with staff. He was unable to tolerate our interview, storming out of the room. He is not suicidal in the hospital setting. He is very focused on being admitted to residential rehabilitation program. He is unable/unwilling to discuss his legal situation. Current medications: Sertraline 100 mg p.o. daily Gabapentin 900 mg p.o. 3 times daily Trazodone 50 mg p.o. nightly Hydroxyzine 25 mg p.o. every 6 hours as needed anxiety Chlorpromazine 100 mg p.o. every 6 hours as needed for agitation Chlorpromazine 100 mg IM every 6 hours as needed agitation MiraLAX 17 mg daily Methadone 50 mg p.o. daily Nicotine 2 mg every 2 hours as needed nicotine craving Robitussin-DM every 4 hours as needed cough Ibuprofen 400 mg every 6 as needed pain Maalox 30 mils every 4-6 hours as needed for GI upset Reason for ongoing admission: The patient is impulsive, labile and irritable with poor impulse control. He is a risk of harm to self or others if discharged prematurely. Treatment plan: -Start Depakote 500 mg p.o. twice daily for mood stability and impulsivity -Discontinue hydroxyzine 25 mg p.o. -Reduce methadone from 50 mg to 40 mg p.o. daily with a further reduction tomorrow to 30 mg -Family meeting has been offered -Unit sr. social media & mobile manager to send referrals to residential rehabilitation facilities -Tentative discharge date March 10 -Patient will be encouraged to call 211 to explore housing options.
--- NOTE | 2018-03-07 18:38 | SOCIAL WORKER PROG NOTE PSYCH ---
Social Work Progress Note Progress Note This science writer met with patient. Patient reported on trauma history, feeling unsupported by his father and how the trauma led to his current substance use. Patient was not re-directable during this meeting. He was agreeable for the need for inpatient treatment and would like to explore rehabs to address his substance use. Patient reports that he has 2 warrants, but does not believe that this will impact his applications/referrals for inpatient/rehab treatment.
[2018-03-07 20:01] VITALS: BP 139/87
[2018-03-08 07:33] VITALS: BP 136/76
--- NOTE | 2018-03-08 15:49 | CP SOUTH PROGRESS NOTE PSYCH ---
Psych (Inpt) Progress Note Progress Note Include the following elements, when applicable: Involvement in the active treatment of the patient with behavioral observations of the patient and the patient's response to the treatment. Review of the ongoing treatment process in the context of the treatment plan. Indication of how multi-disciplinary staff members are carrying out the treatment plan. Plans for future interventions and recommendations for revision of the treatment plan. Liaison with other physicians/providers. Progress Note: [Patient discussed at team meeting] "I feel much calmer, I think that medication is helping" The patient reports that he slept well last night "better than a half since I came here". He is not suicidal or homicidal. He is motivated for sobriety stating "this is the first time I really want it, and really determined". He remains preoccupied with his legal difficulties and his housing. He is craving cigarettes but not other substances. There are no psychotic symptoms. The patient is visible in the milieu. He is tolerating the reduction and methadone well. Mental status examination: The patient is a 32-year-old male who was calm, pleasant and appropriate. There was mild agitation. Eye contact was good. Speech was normal in rate, rhythm, volume and tone. He described his mood as "upset" following a phone call with his father regarding his legal situation. His affect was anxious and mildly agitated. He was not suicidal or homicidal. Thought process was normal in tempo, slightly difficult to redirect, normal in form. There are no delusions or obsessions. Thought content was preoccupied with his legal situation. Attention and concentration were fair. There was no perceptual abnormality. Impulse control was good. Intelligence level is likely average, fund of knowledge average, use of language appropriate. Recent and remote memory are intact. Patient's insight is fair, judgment unimpaired. Assessment: The patient is less anxious, less agitated and less emotionally dysregulation than yesterday. Sleep is good last night. He remains overwhelmed by psychosocial stressors. He is not suicidal or homicidal and there are no psychotic symptoms. Current medications: Sertraline 100 mg p.o. daily Gabapentin 900 mg p.o. 3 times daily Trazodone 50 mg p.o. nightly Hydroxyzine 25 mg p.o. every 6 hours as needed anxiety Chlorpromazine 100 mg p.o. every 6 hours as needed for agitation Chlorpromazine 100 mg IM every 6 hours as needed agitation MiraLAX 17 mg daily Methadone 40 mg p.o. daily Nicotine 2 mg every 2 hours as needed nicotine craving Robitussin-DM every 4 hours as needed cough Ibuprofen 400 mg every 6 as needed pain Maalox 30 mils every 4-6 hours as needed for GI upset Reason for ongoing admission: The patient is still mildly agitated and easily overwhelmed. He remains a risk of harm to self or others if discharged prematurely. Treatment plan: -Continue Depakote and other meds as ordered -Depakote level ordered for 03/10 -Reduce methadone from 40-30 mg tomorrow -Referrals to rehabilitation programs ongoing -Patient encouraged to call 211 and get an appointment for a CANS assessment Tentative discharge 03/11 with follow-up with intensive outpatient level of care if residential rehabilitation -treatment is not an option.
--- NOTE | 2018-03-08 15:55 | CP SOUTH PROGRESS NOTE PSYCH ---
Psych (Inpt) Progress Note Progress Note Include the following elements, when applicable: Involvement in the active treatment of the patient with behavioral observations of the patient and the patient's response to the treatment. Review of the ongoing treatment process in the context of the treatment plan. Indication of how multi-disciplinary staff members are carrying out the treatment plan. Plans for future interventions and recommendations for revision of the treatment plan. Liaison with other physicians/providers. Progress Note: Patient discussed at team meeting "I am still mad" The patient had a dispute with appear this morning. The peer was quite provocative and the patient was able to walk away with staff redirection. However he reports he has not been able to stop thinking of it since and is still very angry. He reports having "lots of energy". His thoughts are still racing. He sleep was poor last night secondary to leg cramps of unknown cause. He is not suicidal or homicidal. He is very concerned about his ability to maintain sobriety on an outpatient basis. There are no psychotic symptoms. The patient reports that she is still irritable although less so. He continues to struggle with concentration. Mental status examination: Thin, 38-year-old male with multiple tattoos. Alert and oriented 3 with steady gait. Eye contact is good. Speech increased in rate, normal in volume, rhythm and tone. Mood "angry"; affect anxious, mildly agitated. The patient is frequently sarcastic with misplaced attempts at humor. Not suicidal or homicidal. Thought process increased in tempo, normal in stream, somewhat circular and form with no disorganization. No delusions or obsessions. Attention and concentration are fair, he requires frequent redirection. No perceptual abnormality. Impulse control fair. Recent and remote memory intact. Intelligence level average, fund of knowledge average, use of language appropriate. Insight good, judgment unimpaired. Current medications: Depakote 500 mg p.o. a.m. and at bedtime trazodone 100 mg p.o. nightly Gabapentin 600 mg p.o. 3 times daily and 900 mg p.o. nightly Nicotine patch 21 mg daily [not using] Folic acid 1 mg p.o. daily Thiamine 100 mg p.o. daily Assessment: The patient remains agitated with slightly increased level of psychomotor activity. Sleep was again poor. Some response to Depakote. Not suicidal or homicidal. Thought content is preoccupied with psychosocial stressors. He has difficulty with task organization due to his hypomania. Treatment plan: -Continue medication as ordered -Depakote level ordered for 03/11 -Patient is on the waiting list for a bed at a residential in [place]. Advised to call the residential directly and inquire as to where he is on the list. -Tentative discharge scheduled for March 11. -Patient working with social media intern on referrals to rehabilitation programs.
[2018-03-08 19:28] VITALS: BP 151/96
[2018-03-09 07:56] VITALS: BP 122/64
--- NOTE | 2018-03-09 10:55 | SOCIAL WORKER PROG NOTE PSYCH ---
Social Work Progress Note Progress Note The services requested require additional review. You will be contacted regarding the status of this request if further information is needed. An authorization decision will be made within the required timeframes and details of that decision may be found under the member's authorization history. Member Name Member ID Member Subscriber Name Subscriber ID CRISTOFER SIMMONS [id number] CRISTOFER SIMMONS [id number] Pended Authorization # Client Authorization # Type of Request [id number] CONCURRENT Date of Admission/ Start of Services Requested From Submission Date 03/02/2018 03/09/2018 03/09/2018 Level of Service Type of Service Level of Care Type of Care INPATIENT/HLOC Mental Health Inpatient Inpatient [facility] - Inpatient Hospital Reason Code P76 Provider Name & Address Provider ID Provider Alternate ID NPI # for Authorization DAVID NICHOLAS [id number] [address] [place] [id number]
--- NOTE | 2018-03-09 15:52 | CP SOUTH PROGRESS NOTE PSYCH ---
Psych (Inpt) Progress Note Progress Note include the following elements, when applicable: Involvement in the active treatment of the patient with behavioral observations of the patient and the patient's response to the treatment. Review of the ongoing treatment process in the context of the treatment plan. Indication of how multi-disciplinary staff members are carrying out the treatment plan. Plans for future interventions and recommendations for revision of the treatment plan. Liaison with other physicians/providers. Progress Note: Patient discussed at team meeting "I am bummed, people did not do the job fast enough". The patient is frustrated that he has not been accepted into residential rehabilitation programs. He remains preoccupied with his legal and housing situations. He slept poorly last night as his roommate was snoring. Appetite is good. He is not suicidal or homicidal. The patient is controlling his impulses well despite his frustration. He is actively participating in planning his discharge. He refuses to go to a correction. Mental status examination: Alert and oriented 3, gait steady. Eye contact good. Mildly agitated. Speech increased in rate but not pressured, normal in rhythm, volume and tone. Mood "bummed". Affect initially frustrated but, and appropriate as the interview progressed. Not suicidal or homicidal. Thought process normal in tempo, stream and form with no delusions or obsessions. Attention and concentration good. No perceptual abnormality. Impulse control good. Recent and remote memory intact. Intelligence level average, fund of knowledge average, use of language appropriate. Insight fair, judgment unimpaired. Current medications: Depakote 500 mg p.o. a.m. and at bedtime trazodone 100 mg p.o. nightly Gabapentin 600 mg p.o. 3 times daily and 900 mg p.o. nightly Nicotine patch 21 mg daily [not using] Folic acid 1 mg p.o. daily Thiamine 100 mg p.o. daily Assessment: The patient has improved significantly. Impulse control is good, he is less agitated despite his frustration with his psychosocial stressors. He is not suicidal or homicidal and there are no psychotic symptoms. Treatment plan: -No medication changes for today -Continue Depakote and other medication as ordered -Continue individual and group psychotherapy -Patient and social work developing discharge plan -Discharge tentatively scheduled for tomorrow -The patient is homeless but refuses to go to a correction.
--- NOTE | 2018-03-09 18:50 | SOCIAL WORKER PROG NOTE PSYCH ---
See Addendum Social Work Progress Note Progress Note This mortgage or loan underwriter met with the patient prior to team meeting. We called [facility] together and left a message with Ky requesting a call back from Radha Ware in admissions. Ky stated that there was no one else that we could speak with regarding the referral. We also called [facility] together and spoke with Marlon who requested that the patient complete the referral form and that it is faxed to them. Once this was completed, it was faxed at 5:54pm. Patient was provided with the phone numbers to [facility] and [facility] and encouraged to call. Referrals were submitted earlier in the week. Patient was also encouraged to call 211 to schedule a CAN assessment, however, he stated that he was not willing to do so as he was not interested in staying in a halfway. Referrals to [facility] were faxed to the [place] location at 1:31pm. Patient refused a referral to [facility]. This mortgage or loan underwriter spoke with Kimberly at 5:57pm alerting her to the referral and will follow up tomorrow. This mortgage or loan underwriter and patient discussed his request for records to be e-mailed to his father. He stated that he was informed that the warrant could be removed and was therefore requesting the records. He was informed that this mortgage or loan underwriter could not e-mail the records. He did not want to pursue this further at this time. He was informed that should he wish to obtain records, he could contact Medical Records regarding the request. Patient stated that he did not want this mortgage or loan underwriter to contact his father and he did not want to request that any information was sent to the court. Inpatient/referral update: [facility] - [place], patient refused due to it being in [facility] - [place], referral sent [facility] - referral sent, patient will follow up [facility] - referral sent, patient will follow up [facility] - patient refused due to it being in [facility] - patient completed screening form and it was faxed to [facility] - patient was denied due to the warrant Martha Montiel - recommedned a higher level of care CAN Assessment - patient refused, though encouraged to reconsider [facility] - multiple attempts to contact, though unsuccessful
[2018-03-09 19:44] VITALS: BP 126/77
[2018-03-10 08:38] VITALS: BP 137/78
--- NOTE | 2018-03-10 14:11 | SOCIAL WORKER PROG NOTE PSYCH ---
Social Work Progress Note Progress Note [facility] a message with [facility], requesting a bed today. She states she will review.
--- NOTE | 2018-03-10 15:31 | CP SOUTH PROGRESS NOTE PSYCH ---
Psych (Inpt) Progress Note Progress Note Include the following elements, when applicable: Involvement in the active treatment of the patient with behavioral observations of the patient and the patient's response to the treatment. Review of the ongoing treatment process in the context of the treatment plan. Indication of how multi-disciplinary staff members are carrying out the treatment plan. Plans for future interventions and recommendations for revision of the treatment plan. Liaison with other physicians/providers. Progress Note: Pt discussed at Team meeting "I am doing OK" I am trying my best to not be anxious, nervous or scared. Has a place to go until Wednesday, staying with female friend who is supportive. Sleeping and eating well. Not suicidal or homicidal. No psychotic symptoms. Mental status examination: Alert and oriented 3, gait steady. Eye contact good. PLeasant and appropriate today. Speech normal rate, rhythm, volume and tone. Mood "ok". Affect good range. Not suicidal or homicidal. Thought process normal in tempo, stream and form with no delusions or obsessions. Attention and concentration good. No perceptual abnormality. Impulse control good. Recent and remote memory intact. Intelligence level average, fund of knowledge average, use of language appropriate. Insight fair, judgment unimpaired. Current medications: Depakote 500 mg p.o. a.m. and at bedtime trazodone 100 mg p.o. nightly Gabapentin 600 mg p.o. 3 times daily and 900 mg p.o. nightly Nicotine patch 21 mg daily [not using] Folic acid 1 mg p.o. daily Thiamine 100 mg p.o. daily Assessment: Stable, tolerating meds well. Waiting to hear about rehabs. Discharge tomorrow. VPA level in the morning. Treatment plan: -No medication changes for today -Continue Depakote and other medication as ordered -Continue individual and group psychotherapy -Please see extensive list of referral sources explored by social work. The patient is not willing to participate in all referral options. -Patient met with A today -The patient is refusing to go to a half-way. The patient was scheduled for discharge this morning. However as some calls were not returned later in the day it is too late for him to access resources in the community -Discharge planned for tomorrow.
--- NOTE | 2018-03-10 15:53 | Patient Discharge Instructions ---
Psych Discharge Inst General Discharge Information Reason for Admission: suicidal ideation Psy Discharge Primary Diag+ Mood Disorder Psy Discharge Secondary Diag+ Opioid Dependence Summary Tests/Major Procedures Lab ALT 58 U/L 03/01/18 1705 AST 33 U/L 03/01/18 1705 Albumin 4.4 g/dL 03/01/18 1705 Alkaline Phosphatase 50 U/L 03/01/18 1705 Anion Gap 8 03/01/18 1705 BUN 19 mg/dL 03/01/18 1705 BUN/Creatinine Ratio 21.1 % 03/01/18 1705 Calcium 9.8 mg/dL 03/01/18 1705 Carbon Dioxide 32 mmol/L H 03/01/18 1705 Chloride 99 mmol/L 03/01/18 1705 Creatinine 0.9 mg/dL 03/01/18 1705 Estimated GFR > 60 ml/min 03/01/18 1705 Globulin 3.2 gm/dL 03/01/18 1705 Glucose 89 mg/dL 03/01/18 1705 Potassium 4.3 mmol/L 03/01/18 1705 Sodium 139 mmol/L 03/01/18 1705 Total Bilirubin 0.3 mg/dL 03/01/18 1705 Total Protein 7.6 g/dL 03/01/18 1705 Hct 45.9 % 03/01/18 1705 Hgb 15.5 G/DL 03/01/18 1705 MCH 28.5 PG 03/01/18 1705 MCHC 33.7 G/DL 03/01/18 1705 MCV 84.3 FL 03/01/18 1705 Plt Count 462 /CUMM H 03/01/18 1705 RBC 5.45 /CUMM 03/01/18 1705 RDW 14.1 % 03/01/18 1705 WBC 7.9 /CUMM 03/01/18 1705 Methadone Screen 676 NG/ML H 03/01/18 1721 Studies Pending at DC: none Patient Instructions Contact Information Your Psychiatrist on [facility] was Kelly SPICER,Bethany * If you are experiencing an emergency related to this hospitalization, please call [phone] to contact the treating psychiatrist or the psychiatrist-on- call. * To Request a copy of your medical records, please contact the Medical Records Department at [phone]. * To request results of studies pending at the time of discharge, please call [phone]. * Continue your Medications until directed to stop by your Healthcare provider. General Medication Information Please continue to take your new medications and your continued home medications , unless otherwise indicated on your discharge medication list, or unless directed by your MD or DIAMOND SANDER to stop them. Special Instructions Diet Regular Activity As Tolerated - Tobacco Use Treatment Offered Post DC Medications Offered: Refused Tob Medication Tx Post DC Tobacco Treatment Plan: Refused Tobacco Tx Pgm - EtOH/Drug Use D/O Treatment Offered Post DC Medications Offered: NA-No EtOH/Drug Use D/O Post DC EtOH/SubAbuse TX Plan: NA-No EtOH/Drug Use D/O Metabolic Screening () Not Applicable, patient not on a neuroleptic. OR () Patient on a neuroleptic(s) . Enter below results for Hemoglobin A1C, and lipid panel if obtained during the last 365 days. BMI: 25.300 Blood Pressure: 135/84 Laboratory Results From [facility] (If applicable): Advance Directives Does the Patient have Medical Advance Directives No/Refused further info Does Pt have Psychiatric Advance Directives? No/Per pt req info provid Does Patient have a Designated Surrogate Decision Maker: No Information About Psychiatric Advance Directives Provided? Refused Discharge Plan Post Hospital Treatment Plan: referral to [facility] tomorrow for Methadone and then to their [facility]
--- NOTE | 2018-03-10 15:57 | Incdntl Nt Psy ---
Incidental Note Notation: VPA level 42.1. Started on 03/07. Increase HS dose to 750mg.
--- NOTE | 2018-03-10 18:36 | SOCIAL WORKER PROG NOTE PSYCH ---
Social Work Progress Note Progress Note 9:03am: This service writer spoke with Wendi at [facility] ([phone]) who stated that while they accept patients with active warrants they are currently full and not taking new referrals at this time. No patient information was provided. This service writer attempted to reach the [facility] but was not successful in reaching them. This service writer met with patient. Patient was informed of the above two calls. He was also informed that an appointment had been scheduled for him with SAYDA on at 11am on [address] [place] [address]. Patient was informed that [facility] does not have any beds, but will keep his referral active for 30 days. Patient is refusing the CAN assessment. He was also informed that [facility] requires him to be agreeable to a CAN assessment if he were to go to their program.
[2018-03-10 20:12] VITALS: BP 126/71
[2018-03-11 08:33] VITALS: BP 135/84
[2018-03-11] MEDS ORDERED: DIVALPROEX SOD500 M2 PO (11:54)
[2018-03-11] MEDS ORDERED: GABAPENTIN300 M2 PO (11:55)
[2018-03-11] MEDS ORDERED: TRAZODONE HCL50 M1 PO (11:55)
[2018-03-11] MEDS ORDERED: DEPAKOTE ER250 M1 PO (11:55)
[2018-03-11] MEDS ORDERED: ZOLOFT100 M1 PO (11:55)
[2018-03-11] MEDS ORDERED: GABAPENTIN600 M1 PO (11:55)
--- NOTE | 2018-03-11 12:00 | DISCHARGE SUMMARY REPORT-PSYCH ---
Visit Information Visit Dates/Diagnosis' Admission Date: 03/02/18 Discharge Date: 03/11/18 Reason for Admission: suicidal ideation Psy Discharge Primary Diag: Mood Disorder Psy Discharge Secondary Diag: Opioid Dependence Hospital Course Significant Lab Findings: 03/01/18 1721: Urine Opiates Screen < 100, Methadone Screen 676 H, Barbiturate Screen < 60, Ur Phencyclidine Scrn < 6.00, Amphetamines Screen < 100, U Benzodiazepines Scrn < 85, Urine Cocaine Screen < 50, Urine Cannabis Screen < 5.00, Urine Color YEL, Urine Clarity CLEAR, Urine pH 6.5, Ur Specific D Hanis 1.025, Urine Protein NEG, Urine Ketones NEG, Urine Nitrite NEG, Urine Bilirubin NEG, Urine Urobilinogen 0.2, Ur Leukocyte Esterase NEG, Ur Microscopic EXAM NOT REQUIRED, Urine Hemoglobin NEG, Urine Glucose NEG 03/01/18 1705: Anion Gap 8, Estimated GFR > 60, BUN/Creatinine Ratio 21.1, Glucose 89, Calcium 9.8, Total Bilirubin 0.3, AST 33, ALT 58, Alkaline Phosphatase 50, Total Protein 7.6, Albumin 4.4, Globulin 3.2, Albumin/Globulin Ratio 1.4, CBC w Diff NO MAN DIFF REQ, RBC 5.45, MCV 84.3, MCH 28.5, MCHC 33.7, RDW 14.1, MPV 6.6 L, Gran % 64.4, Lymphocytes % 24.9, Monocytes % 7.3, Eosinophils % 2.0, Basophils % 1.4, Absolute Granulocytes 5.1, Absolute Lymphocytes 2.0, Absolute Monocytes 0.6, Absolute Eosinophils 0.2, Absolute Basophils 0.1, Serum Alcohol < 10.0 Toxicology Screen Completed? Yes Results: positive (methadone) Course Complications: none Consultations: The patient had a full physical examination and review of systems carried out by the hospitalist service on March 04. These notes have been reviewed and are part of the patient's medical record. Allergies: Coded Allergies: No Known Allergies (06/15/17) Hospital Course/TX Response: The patient presented to the emergency room reporting suicidal ideation. He had been discharged from a five-day detox program at [facility] and referred to [facility] for long-term rehabilitation. However he was denied there on presentation due to to outstanding warrants. The patient was unable to commit to safety outside an inpatient setting. The patient was admitted on a voluntary basis and placed on 15 minute checks for safety. He was started on sertraline for depression and gabapentin for anxiety. A few days after admission the patient was noted to be extremely reactive and impulsive. He was speaking quickly and it was impossible to interrupt or redirect him. He was angry, agitated, pacing. He was unable to sit still or make eye contact. Impulse control was poor. He was prescribed Depakote with good effect. The patient has definite obsessional traits, at least the severity of session will personality disorder if not full-blown OCD. Throughout his admission the patient was very focused on his legal situation and his lack of housing. His reactivity to the situations diminished somewhat once he had been started on Depakote. The patient was maintained on methadone throughout his admission. He tolerated all his medications well without any side effects. On the day of discharge the patient was not suicidal or homicidal and there were no psychotic symptoms. He reported that he has full intent of turning himself into the police after the long holiday weekend. He was still somewhat reactive particularly to conversations with his father over the phone. Depakote level on March 10 was low at 42.1. This is at a dose of 500 mg p.o. a.m. and at bedtime for 3 days. Dose was increased to 500 mg every morning and 750 mg nightly and level will need to be repeated as an outpatient. Discharge HBIPS - Tobacco Use Treatment Offered Post DC Medications Offered: Refused Tob Medication Tx Post DC Tobacco Treatment Plan: Refused Tobacco Tx Pgm - EtOH/Drug Use D/O Treatment Offered Post DC Medications Offered: NA-No EtOH/Drug Use D/O Post DC EtOH/SubAbuse TX Plan: NA-No EtOH/Drug Use D/O Metabolic Screening - Screen if on a Neuroleptic Medication - Metabolic screening should include: - Blood Pressure, BMI, Glucose or Hgb A1c, & a - Lipid profile from within the past 365 days. Metabolic Screening () Not Applicable, patient not on a neuroleptic. OR () Patient on a neuroleptic(s) . Enter below results for Hemoglobin A1C, and lipid panel if obtained during the last 365 days. BMI: 25.300 Blood Pressure: 135/84 Laboratory Results From [facility] (If applicable): Discharge Instructions General Discharge Information Multiple Neuroleptics: () Not Applicable OR Document below three failed attempts at monotherapy, or a plan to taper to monotherapy, or augmentation of Clozapine. () Discharge Diet Regular Discharge Activity As Tolerated DC Disposition: The patient will stay with a friend for a few days. He will follow-up at [facility] for methadone and has an IOP appointment at [facility] on March 17. Referrals Ordered Referrals Provider Referral 03/12/18 For Providers: [[facility]] [facility] [address] [facility], [place] [phone] Patient will utilize walk in hours on 03/12/18, between 5:30am-12:30pm Provider Referral 03/17/18 For Providers: [[facility]] For Groups: [IOP] [facility] [address] [facility], [place] [phone] IOP Intake appointment: , 03/17/18, at 9am Provider Referral 03/16/18 For Providers: [[facility]] For Groups: [[facility]] [facility] [address] [phone] Group meets every other Wednesday at 4pm Next group: 03/16/18, at 4pm Prescriptions Stop taking the following medications: Trazodone HCl (Trazodone HCl) 50 MG TABLET ORAL Every night as needed for SLEEP/ MENTAL HEALTH Ibuprofen (Advil) 200 MG CAPSULE ORAL as needed for PAIN/INFLAMMATION Continue taking these medications: Methadone HCl (Methadone HCl) 10 MG/ML ORAL.CONC 30 Milligram ORAL DAILY Comments: Last Taken:03/11/18 Time:8am Start taking the following new medications: Divalproex Sodium (Divalproex Sodium) 500 MG TABLET.DR 500 Milligram ORAL TWICE DAILY Qty = 28 No Refills Comments: Last Taken:03/11/18 Time:8am Gabapentin (Gabapentin) 300 MG CAPSULE 300 Milligram ORAL 4 TIMES A DAY Qty = 56 No Refills Comments: Last Taken:03/11/18 Time:8am Sertraline HCl (Zoloft) 100 MG TABLET 100 Milligram ORAL DAILY Qty = 14 No Refills Comments: Last Taken:03/11/18 Time:8am Trazodone HCl (Trazodone HCl) 50 MG TABLET 50 Milligram ORAL 2200 as needed for INSOMNIA Qty = 14 No Refills Comments: Last Taken:03/11/18 Time:2am Divalproex Sodium (Depakote ER) 250 MG TAB.ER.24H 1 Tablet ORAL Every night Qty = 30 No Refills Instructions: take with 500 mg tab Comments: Last Taken:03/10/18 Time:8pm Gabapentin (Gabapentin) 600 MG TABLET 1 Tablet ORAL 2200 Qty = 14 No Refills Instructions: take with 300 mg tab Comments: Last Taken:03/10/18 Time:10pm Studies Pending at Discharge none Copies To: .
--- NOTE | 2018-03-11 18:54 | SOCIAL WORKER PROG NOTE PSYCH ---
Social Work Progress Note Progress Note This abstract writer spoke with Estrellita Keenan, cloth winding supervisor at [facility] ([phone], ext. [phone]). She stated that the patient could present to their clinic to resume Methadone treatment tomorrow at 03/12/18 between 5:30am and 12:30pm. She stated that they do not offer IOP and recommended [facility]. This abstract writer spoke with Jaleel French at [facility] ([phone]). He confirmed that while the patient cannot utilize their care home due to his active warrant, he can still participate in the IOP. Patient was given an intake date of 03/17/18 at 9am. He stated that he would be able to meet with a prescriber the day after his intake. Upon his inquiry, Blaise French was informed that the patient will be staying with a friend. This abstract writer spoke with Lai Bruner with [facility] ([phone]). Lai stated that he was willing to work with the patient if the patient chooses to do so. Lai was informed of the discharge plans. This abstract writer met with the patient. We reviewed discharge plans and he accepted the above appointments. He also stated that he plans to continue working with Lai from [facility] and was provided with Lai's business card. We reviewed the rehabs that the patient was referred to. Patient stated that he will continue to follow up with [facility], [facility] Schwab and [facility]. He stated that he will not pursue [facility] due to their failure to return calls. He was also provided with the [facility] phone number. Kimberly (at [facility]) stated that the patient could follow up with them after discharge if needed. Also, per Kimberly, patient was informed that he would need to be agreeable to a CAN assessment should he pursue [facility]. He continues to refuse to go to a care home. Patient stated that he will be staying with a friend temporarily and that the friend will provide transportation from the hospital today. He denied SI/HI/hallucinations. He identified a safety plan to "call 911" and accepted the crisis numbers and warm lines upon discharge. Patient denied any access to guns. He stated that he did not need any additional referrals or appointments made. Patient was also informed that this abstract writer received a vm from his father regarding court matters. He was agreeable to calling his father (Rhett Huang) whom we called ([phone]). Rico Huang stated that [employer] Shahram Thakkar at the [employer] was requesting the dates that he was in the hospital. Patient signed an JERAMIE for [employer] [facility]/Shahram Thakkar. We attempted to reach Blaise Thakkar, however, he was not available and patient requested that this abstract writer attempted later today. This abstract writer spoke with [employer] Shahram Thakkar ([phone]) who stated that he was requesting a letter indicating the patient's admission and discharge date regarding this current admission. The letter was written, reviewed and approved by the patient and then faxed to [employer] Shahram Thakkar/[employer] [phone] at 1:19pm. Patient was informed of fax sent. 4:22pm: this abstract writer left vm for Blaise Thakkar informing that the fax was send and provided a call back number if it was not received. Faxed Referral(s) 1 Referred To: [facility] Transition of Care Documents sent: Health Summary Faxed to: Yousuf Villareal/Blaise French Fax #: [phone] Faxed by: Paul Islas LCSW Date faxed: 03/11/18 Time Faxed: [phone] Faxed Referral(s) 2 Referred To: [facility] Transition of Care Documents sent: Health Summary Faxed to: [facility] Fax #: [phone] Faxed by: Paul Islas LCSW Date faxed: 03/11/18 Time Faxed: [phone]
--- NOTE | 2018-03-11 19:03 | SOCIAL WORKER PROG NOTE PSYCH ---
Social Work Progress Note Progress Note This video games storywriter attempted to reach the patient by phone (number listed in patient's demographics) regarding the [employer] [facility] appointment as it had not been included in the discharge papers. The vm message indicated that it was the patient's vm. A vm was left with the following information requesting a call back to confirm receipt of the message: [facility] [address] [facility] 03/24 at 11am A vm was also left for Brain IRA Bruner, with this information as well.
== END 2018-03-11 13:57 | DRG 753 ==
LOC: ERH 16:30 → ERHI 03-02 13:23 → CP SOUTH 03-02 13:23 → EDBEDREQSVC 03-02 15:23 → EDBEDREQ 03-02 15:23 → ENTRNSPT 03-02 15:40 → CP SOUTH 03-02 15:57 → CMPTRNSPT 03-02 15:59 → CP SOUTH 03-02 16:28
PROVIDERS: Physician Assistant Medical
DX: F31.9 Bipolar disorder, unspecified (principal); F63.9 Impulse disorder, unspecified; F11.90 Opioid use, unspecified, uncomplicated; F60.5 Obsessive-compulsive personality disorder; R45.851 Suicidal ideations; Z59.0 Homelessness
CPT/HCPCS: 36415; 71045; 80307; 81003; G0463; G0480